=== PATIENT | female | born 1960 | race Caucasian/White ===

== ENCOUNTER 2017-02-08 10:07 | Emergency (ER) | payer BC ==
[~2017-02-08] VITALS: Ht 162.6 cm; Wt 58.0 kg
[2017-02-08] MEDS ORDERED: MORPHINE SULFATE 4 MG/ML, 1ML IVPush PRN (10:30)
[2017-02-08] MEDS ORDERED: ONDANSETRON 2MG/ML, 2ML IVPush ONE (10:30)
[2017-02-08] MEDS ORDERED: KETOROLAC 30 MG/1 ML IVPush ONE (10:30)
[2017-02-08] MEDS ORDERED: SODIUM CHLORIDE FLUSH 10ML SYR IVF ONE (10:30)
[2017-02-08] MEDS ORDERED: BUPR300T49 PO (10:30)
[2017-02-08] MEDS ORDERED: DULO60CA7 PO (10:30)
[2017-02-08] MEDS ORDERED: ONDANSETRON 2MG/ML, 2ML ONE (10:33)
[2017-02-08] MEDS ORDERED: MORPHINE SULFATE 4 MG/ML, 1ML ONE (10:33)
[2017-02-08] MEDS ORDERED: KETOROLAC 30 MG/1 ML ONE (10:33)
[2017-02-08] MEDS ORDERED: SODIUM CHLORIDE 0.9% 1,000ML IVBOLUS ONE (11:00)
[2017-02-08 11:07] LABS: HEMOGLOBIN 11.9 g/dL (11.7-16.4)
[2017-02-08 11:13] LABS: BLOOD UREA NITROGEN 21 mg/dL (7-18)
[2017-02-08 13:51] VITALS: BP 106/76
== END 2017-02-08 14:01 | disposition home or self-care (01) ==
LOC: ED 12:18
DX: N20.1 Calculus of ureter (principal); R31.9 Hematuria, unspecified; Z87.442 Personal history of urinary calculi; F41.1 Generalized anxiety disorder; F17.200 Nicotine dependence, unspecified, uncomplicated
CPT/HCPCS: 36415; 74176; 80048; 81001; 82040; 85025; 87086; 96361; 96374; 96375; 99285; J1885; J2405; J7030